=== PATIENT | female | born 1995 | race African-American/Black ===

== ENCOUNTER 2025-02-18 10:17 | Emergency (ER) | payer MEDICAID ==
[~2025-02-18] VITALS: Ht 167.6 cm; Wt 91.0 kg
[2025-02-18 10:25] VITALS: O2SAT 99
[2025-02-18] MEDS: IBUPROFEN 600MG TABLET PO ONE (11:27)
[2025-02-18] MEDS ORDERED: NAPR-681 PO (11:56)
[2025-02-18] MEDS ORDERED: AMOX-431 MT (11:56)
[2025-02-18] MEDS ORDERED: AMOX500T2 MT (12:05)
[2025-02-18 12:14] VITALS: BP 118/83; PULSE 78; RESP 16; TEMP 36.9; O2SAT 100
[2025-02-18] MEDS ORDERED: DEXAMETHASONE 10 MG/ML VIAL IM ONE (12:15)
[2025-02-18] MEDS: PENICILLIN G BENZATHINE 1,200,000 UNITS/2ML SYR IM SCH (12:30)
[2025-02-18] MEDS: DEXAMETHASONE 10 MG/ML VIAL IM NR (12:31)
== END 2025-02-18 12:39 | disposition home or self-care (01) ==
LOC: ER 10:17
DX: J02.0 Streptococcal pharyngitis (principal)
CPT/HCPCS: 81025; 87430; 96372; 99284; J1100; J0561; Z7610